=== PATIENT | female | born 1990 | race Caucasian/White ===

== ENCOUNTER 2019-11-19 17:32 | Emergency (ER) | payer MEDICAID, SELFPAY ==
[2019-11-19 17:47] VITALS: BP 99/65; PULSE 106; RESP 18; TEMP 36.8; O2SAT 98; BMI 22.8
--- NOTE | 2019-11-19 17:48 | XR_ITS ---
WS: [id number] EXAM: Chest: PA and lateral DATE OF EXAMINATION: 11/19/2019, 1809 hours COMPARISON: None. HISTORY: Patient is 29 years old with atraumatic chest pain. FINDINGS: The heart size is normal. The mediastinal contours are normal. Pulmonary vascularity is within norm al limits. The lungs are clear. No effusion, or pneumothorax. Bone density is normal in appearance. XR/XR chest 2V* [id number] IMPRESSION: NO ACUTE PULMONARY DISEASE.
--- NOTE | 2019-11-19 17:48 | ECG_ITS ---
[facility] Test Date: 2019-11-19 Pat Name: Juliann Braswell Department: Room: Gender: Female School Teacher: nelda : 1990 Requested By: Kaushal Huston Order Number: [id number] Debbie MD: Sarai Conklin M.D. Measurements Intervals [place] Rate: 98 P: 51 CO: 115 QRS: 71 QRSD: 89 T: 61 QT: 336 QTc: 430 Interpretive Statements SINUS RHYTHM WITH SHORT CO INTERVAL POSSIBLE RIGHT VENTRICULAR CONDUCTION DELAY [RSR (QR) IN V1/V2] No previous ECG available for comparison Electronically Signed On 11-19-2019 23:04:27 CDT by Sarai Conklin M.D. [email or web address]
--- NOTE | 2019-11-19 17:56 | PC.NURSE ---
UA collected and sent to lab
--- NOTE | 2019-11-19 19:10 | W.ED.CHESTPA ---
HPI - Chest Pain General: Chief Complaint: Chest Pain Stated Complaint: cp Time Seen by Provider: 11/19/19 18:54 Source: patient Mode of arrival: ambulatory Limitations: no limitations History of Present Illness: HPI narrative: Juliann is a very nice 29-year-old female who comes in complaining of chest pain. Scribes the pain is a deep ache in her chest but it feels like when she has bronchitis. The patient denies cough, fever, loss of sense of taste, loss of sense of smell or other URI symptoms. She states the pain is been constant since early this morning. She went to an urgent care and they referred her here informing her they thought she had a blood clot. Patient states she does have slight increase in pain when she takes a deep breath but otherwise has no syncope, near syncope, palpitations, leg pain or swelling. Associated symptoms: Deny abdominal pain, diaphoresis, dyspnea, fever(s), nausea, palpitations, syncope or vomiting Review of Systems Const: Denies: fever(s), chills, body aches, fatigue, malaise or diaphoresis Eyes: Denies: change in vision, blurry vision, photophobia, eye discomfort, eye discharge or eye redness ENMT: Denies: throat pain, odynophagia, hoarseness, swelling of lips/tongue, ear or mastoid pain, ear discharge, change in hearing or nasal discharge Card: Reports: chest pain; Denies: palpitations, irregular heart rhythm, edema, lightheadedness, syncope, pre-syncope, dyspnea on exertion or orthopnea Resp: Denies: dyspnea, productive cough, non-productive cough, wheezing, hemoptysis or chest congestion GI: Denies: abdominal pain, nausea, vomiting, hematemesis, coffee ground emesis, heartburn, diarrhea, constipation, GI cramping, hematochezia or melena : Denies: flank pain, dysuria, urinary frequency, urinary urgency or hematuria Musc: Denies: neck pain, back pain, extremity pain, extremity swelling, joint pain, joint swelling, joint redness, joint warmth or joint stiffness Skin/Breast: Denies: rash, pruritus, erythema or skin tenderness Neuro: Denies: headache(s), numbness in extremities, weakness in extremities, sensory changes, lack of coordination, difficulty walking, dizziness, vertigo, confusion, Slurred speech present or seizure-like activity Moshe/Lymph: Denies: easy bruising, easy bleeding, petechiae, purpura or enlarged lymph nodes All/Imm: Denies: urticaria, throat swelling, tongue swelling, facial swelling or acute wheezing PFSH ED PFSH: Medical History (Updated 11/19/19 @ 21:30 by Shi Smith) No pertinent past medical history Surgical History (Updated 11/19/19 @ 19:15 by Shi Smith) No pertinent past surgical history Social History (Updated 11/19/19 @ 15:[address] [facility]) Smoking and tobacco status: current every day smoker cigarettes Packs smoked per day: 0.5 Alcohol intake: never Physical Exam Const: COMMON NORMALS: no acute distress, patient oriented x3, no limitations, healthy appearing and well nourished GENERAL APPEARANCE: cooperative, well kempt and well developed HENMT: COMMON NORMALS: normocephalic, atraumatic, external ears normal, EAC's normal and Normal external nose present HEAD & SCALP: normal to inspection, normocephalic and atraumatic FACE & SINUS: normal facial exam and face symmetric NOSE: Normal external nose present and Normal nares present EXTERNAL EAR: Yes external ears normal EXTERNAL AUDITORY CANAL: EAC's normal MOUTH: Normal oral and palatal mucosa present, lip normal and tongue normal Eye: COMMON NORMALS: Equal, round and reactive pupils present and conjunctivae normal GENERAL EYE: appearance normal, both eyes and all related structures ALIGNMENT: Yes alignment normal PERIORBITAL: periorbital findings normal EYELID: eyelids normal CONJUNCTIVA: Yes conjunctivae normal SCLERA: sclerae normal PUPIL: Yes Equal, round and reactive pupils present Neck/C-Spine: COMMON NORMALS: full ROM, no lymphadenopathy, supple, no meningeal signs and no JVD GENERAL: Yes normal visual inspection and Yes trachea midline Chest: COMMONS NORMALS: normal inspection of the chest and normal palpation of entire chest wall Resp: COMMON NORMALS: normal respiratory effort, No retractions, No use of accessory muscles and clear to auscultation bilaterally EFFORT & INSPECTION: Yes able to speak in complete sentences and Yes symmetric chest movement AUSCULTATION: clear to auscultation bilaterally, no crackles, no rales, no rhonchi and no wheezes Cardio: COMMON NORMALS: no JVD, regular rate, regular rhythm, S1 normal heart sound present and S2 normal heart sound present RATE: regular rate RHYTHM: regular rhythm HEART SOUNDS: S1 normal heart sound present, S2 normal heart sound present, no click, no gallops, no murmurs, no rubs and abnormal split S2 GI: COMMON NORMALS: Soft to palpation and No hepatosplenomegaly present INSPECTION: Yes gravid abdomen PALPATION: Yes Soft to palpation, No Tenderness to palpation present (GI), No Guarding due to palpation present (GI), No Rigid due to palpation, Yes No hepatosplenomegaly present, No Hernia present and No Pulsatile mass present : COMMON NORMALS: Yes no CVA tenderness BLADDER/KIDNEY EXAM: Yes no CVA tenderness EXTERNAL FEMALE EXAM: No Hernia present Back/Pelvis: COMMON NORMALS: no CVA tenderness, thoracic and lumbar spine normal to inspection, no thoracic nor lumbar tenderness and thoraco-lumbar ROM normal Extremity: COMMON NORMALS: normal to inspection, full ROM, capillary refill normal, no joint enlargement, no clubbing, cyanosis or edema and no calf tenderness Neuro: COMMON NORMALS: patient oriented x3, CN's II-XII intact bilaterally, moves all extremities, no focal motor deficits and no sensory deficits noted MENINGEAL SIGNS: Yes no meningeal signs SPEECH: speech normal Psych: COMMON NORMALS: mental status grossly normal, Normal thought process present, cooperative, normal affect, speech normal and activity/motor behavior normal APPEARANCE: Yes well kempt SPEECH: Yes normal speech THOUGHT PROCESS: Normal thought process present Skin: COMMON NORMALS: no rashes or lesions noted, turgor normal, no jaundice, no petechiae and no mottling GENERAL SKIN EXAM: no rashes or lesions noted and turgor normal Course Vital Signs: Vital signs: Vital Signs Temperature 97.7 F 11/19/19 19:14 Pulse Rate 74 11/19/19 21:03 Respiratory Rate 16 11/19/19 21:03 Blood Pressure 111/65 11/19/19 21:03 Pulse Oximetry 99 11/19/19 21:03 MDM - Chest Pain MDM Narrative: Medical decision making narrative: Juliann is a nice 29-year-old female comes in complaining of chest pain. Pain is been constant all day. She has a unremarkable EKG and a normal troponin. Chest pain for this long per the hospital pathway rules out cardiac causes for his symptoms. Patient's d-dimer was unfortunately high but a CTA is negative including the pulmonary section. There is no sign of infection either. Ultrasound of lower extremities is normal. heart rate is normal by bedside ultrasound. I will go ahead and discharge the patient home and she agrees to follow-up with her regular doctor if her symptoms persist. Lab Data: Attestation: I reviewed the patient's lab results. Labs: Lab Results 11/19/19 11/19/19 11/19/19 Range/Units 17:52 19:09 19:09 WBC 10.8 H (4.0-10.0) 10^3/ uL RBC 3.27 L (4.1-5.3) 10^6/u L Hgb 11.1 L (11.5-15.3) g/dL Hct 33.1 L (37.0-47.0) % MCV 101.2 H (81-99) fL MCH 33.9 (28.0-34.0) pg MCHC 33.5 (30.0-36.0) g/dL RDW 13.1 (12.1-15.1) % Plt Count 286 (130-400) 10^3/c mm MPV 10.1 (7.4-10.4) fL Neut % (Auto) 58.7 % Lymph % (Auto) 35.7 % [place] % (Auto) 4.3 % Eos % (Auto) 0.7 % Baso % (Auto) 0.3 % Neut # (Auto) 6.36 (1.8-7.7) 10^3/u L Lymph # (Auto) 3.9 (0.8-4.8) 10^3/u L [place] # (Auto) 0.5 (0.2-0.9) 10^3/u L Eos # (Auto) 0.1 (0.0-0.8) 10^3/u L Baso # (Auto) 0.0 (0.0-0.1) 10^3/u L Nucleated RBC % (a uto) 0 % Nucleated RBCs # 0.0 /100WBC D-Dimer 0.84 H (0-0.59) ug/mIFE U Sodium (136-145) mmol/L Potassium (3.5-5.1) mmol/L Chloride (98-107) mmol/L Carbon Dioxide (22-29) mmol/L Anion Gap (5-19) BUN (6-20) mg/dL Creatinine (0.5-0.9) mg/dL GFR Calculation (90-130) mL/min Glucose (65-115) mg/dL Calculated Osmolal ity (285-295) mOsm/k g Calcium (8.5-10.5) mg/dL Total Bilirubin (0.15-1.2) mg/dL AST (0-32) U/L ALT (0-33) U/L Alkaline Phosphata se (35-105) IU/L Troponin T Gen 5 n g/L (0-10) ng/L Total Protein (6.6-8.7) g/dL Albumin (3.5-5.2) g/dL Globulin (1.3-4.6) g/dL Amorphous Sediment Not Reportable 11/19/19 11/19/19 Range/Units 19:09 19:09 WBC (4.0-10.0) 10^3/ uL RBC (4.1-5.3) 10^6/u L Hgb (11.5-15.3) g/dL Hct (37.0-47.0) % MCV (81-99) fL MCH (28.0-34.0) pg MCHC (30.0-36.0) g/dL RDW (12.1-15.1) % Plt Count (130-400) 10^3/c mm MPV (7.4-10.4) fL Neut % (Auto) % Lymph % (Auto) % [place] % (Auto) % Eos % (Auto) % Baso % (Auto) % Neut # (Auto) (1.8-7.7) 10^3/u L Lymph # (Auto) (0.8-4.8) 10^3/u L [place] # (Auto) (0.2-0.9) 10^3/u L Eos # (Auto) (0.0-0.8) 10^3/u L Baso # (Auto) (0.0-0.1) 10^3/u L Nucleated RBC % (a uto) % Nucleated RBCs # /100WBC D-Dimer (0-0.59) ug/mIFE U Sodium 136 (136-145) mmol/L Potassium 3.5 (3.5-5.1) mmol/L Chloride 105 (98-107) mmol/L Carbon Dioxide 23 (22-29) mmol/L Anion Gap 11.5 (5-19) BUN 8 (6-20) mg/dL Creatinine 0.5 (0.5-0.9) mg/dL GFR Calculation 148.0 H (90-130) mL/min Glucose 105 (65-115) mg/dL Calculated Osmolal ity 278 L (285-295) mOsm/k g Calcium 9.1 (8.5-10.5) mg/dL Total Bilirubin 0.2 (0.15-1.2) mg/dL AST 12 (0-32) U/L ALT 10 (0-33) U/L Alkaline Phosphata se 44 (35-105) IU/L Troponin T Gen 5 n g/L 6 (0-10) ng/L Total Protein 6.4 L (6.6-8.7) g/dL Albumin 3.7 (3.5-5.2) g/dL Globulin 2.7 (1.3-4.6) g/dL Amorphous Sediment Imaging Data^: US venous Doppler bilateral: My impression: Tech interpretation -no evidence of DVT CXR: Attestation: I personally reviewed and interpreted this imaging study as follows: My impression: No acute cardiopulmonary findings CT Chest: Radiologist's impression: [address] [address] [address] Scan Report Signed Patient: Juliann Braswell Unit #: [id number] : 1990 Age/Sex: 29 / F ADM Date: 11/19/19 Loc: ER Room/Bed: Attending Dr: Ordering Provider/Ordering MD: Shi Smith DO Date of Service: 11/19/19 Procedure(s): CT angio chest PE protcl 10001 Accession Number(s): [id number] Report Number: [id number] PROCEDURE INFORMATION: Exam: CT Angiography Chest With Contrast Exam date and time: 11/19/2019 8:29 PM Age: 29 years old Clinical indication: Chest pain; Additional info: Chest pain, positive d-dimer TECHNIQUE: Imaging protocol: Computed tomographic angiography of the chest with intravenous contrast. 3D rendering (Not supervised by radiologist): MIP and/or 3D reconstructed images were created by the technologist. Radiation optimization: All CT scans at this facility use at least one of these dose optimization techniques: automated exposure control; mA and/or kV adjustment per patient size (includes targeted exams where dose is matched to clinical indication); or iterative reconstruction. Contrast material: VISI 320; Contrast volume: 67 ml; Contrast route: INTRAVENOUS (IV); COMPARISON: CR XR chest 2V* 13000 11/19/2019 6:03 PM RADIATION DOSE METRICS: Total DLP (mGy-cm): 588.13 FINDINGS: Pulmonary arteries: Normal. No pulmonary emboli. Aorta: Unremarkable. No aortic aneurysm. No aortic dissection. Lungs: Unremarkable. No consolidation. No masses. Pleural space: Unremarkable. No pneumothorax. No pleural effusion. Heart: Unremarkable. No cardiomegaly. No pericardial effusion. Lymph nodes: Unremarkable. No enlarged lymph nodes. Bones/joints: Unremarkable. No acute fracture. Soft tissues: Unremarkable. CT/CT angio chest PE protcl [id number] IMPRESSION: Negative for pulmonary embolus or airspace infiltrate. Radiation Dose CTDIVOL = (mGy): DLP = 588.13 (mGy-cm) Dictated By: Andres Rose MD Signed By: Andres Rose MD Signed Date/Time: 11/19/192114 DD/ 13 Discharge Plan Discharge Patient Disposition: Home Clinical Impression: Chest pain Qualifiers: Chest pain type: unspecified Qualified Code(s): R07.9 - Chest pain, unspecified Condition: Stable Prescriptions: No Action prenat.vits,jeanine,evu-xtao-weoqs Tablet 1 tab PO DAILY RF: 0 omeprazole 20 mg capsule,delayed release(DR/EC) 20 mg PO DAILY RF: 0 Discharge Orders: Discharge Order (Routine); Ordered 11/19/19 Ordered By: Shi Smith Referrals: Rigo Reddy MD [Primary Care Provider] - 1-3 days Discharge Diet: Advance as tolerated Discharge Activity: Increase activity as tolerated Patient Instructions: Chest Pain (ED), Costochondritis (ED) Activity Restrictions/Additional Instructions: Please return to the ER immediately for any of the signs or symptoms listed on your discharge instruction sheets, worsening/changing of your symptoms, you are not getting better as quickly as expected, or for ANY other cause or concerns. Coding Level of Care Code ED [employer] Exam Comprehensive
[2019-11-19 19:14] VITALS: BP 109/68; PULSE 82; RESP 18; TEMP 36.5; O2SAT 98
[2019-11-19 19:17] LABS: Basophils % 0.3 %; Eosinophils # 0.1 10^3/uL (0.0-0.8); Eosinophils % 0.7 %; Hematocrit 33.1 % (37.0-47.0); Hemoglobin 11.1 g/dL (11.5-15.3); Lymphocytes # 3.9 10^3/uL (0.8-4.8); Lymphocytes % 35.7 %; Mean Corpuscular HGB Conc 33.5 g/dL (30.0-36.0); Mean Corpuscular Hemoglobin 33.9 pg (28.0-34.0); Mean Corpuscular Volume 101.2 fL (81-99); Mean Platelet Volume 10.1 fL (7.4-10.4); Monocytes # 0.5 10^3/uL (0.2-0.9); Monocytes % 4.3 %; Neutrophils # 6.36 10^3/uL (1.8-7.7); Neutrophils % 58.7 %; Nucleated Red Blood Cells % 0 %; Platelet Count 286 10^3/cmm (130-400); Red Blood Count 3.27 10^6/uL (4.1-5.3); Red Cell Distribution Width 13.1 % (12.1-15.1); White Blood Count 10.8 10^3/uL (4.0-10.0)
[2019-11-19 19:32] LABS: D Dimer 0.84 ug/mIFEU (0-0.59)
[2019-11-19 19:37] LABS: Alanine Aminotransferase 10 U/L (0-33); Albumin Level 3.7 g/dL (3.5-5.2); Alkaline Phosphatase 44 IU/L (35-105); Anion Gap 11.5 (5-19); Aspartate Amino Transferase 12 U/L (0-32); Blood Urea Nitrogen 8 mg/dL (6-20); Calcium 9.1 mg/dL (8.5-10.5); Carbon Dioxide 23 mmol/L (22-29); Chloride 105 mmol/L (98-107); Globulin 2.7 g/dL (1.3-4.6); Glucose 105 mg/dL (65-115); Osmolality Calculated 278 mOsm/kg (285-295); Potassium 3.5 mmol/L (3.5-5.1); Sodium 136 mmol/L (136-145); Total Bilirubin 0.2 mg/dL (0.15-1.2); Total Protein 6.4 g/dL (6.6-8.7); Troponin T (5th) Once 6 ng/L (0-10)
--- NOTE | 2019-11-19 19:53 | USCV_ITS ---
Juliann Braswell Age: 29 Gender: F : 1990 Exam Date: 11/19/2019 20:26 Ordering Phys: Shi Smith DO Technologist: Liborio Vann Exam Location: [facility] [place] Indication: ? PE HISTORY: CHEST PAIN PROCEDURES: The venous duplex Doppler examination of both lower extremities was performed in the standard fashion. The following venous structures were evaluated: common femoral vein, profunda vein, proximal portion of the greater saphenous vein, superficial femoral vein, and the popliteal vein. Bilaterally, the common femoral, superficial femoral, profunda femoral, popliteal, posterior tibial, greater saphenous veins, and the peroneal trunk were identified and interrogated in the standard fashion. These veins were found to be easily compressible with spontaneous blood flow. No evidence of insufficiency or thrombus noted. FINDINGS: Normal 2-D Doppler and augmentation and compressibility throughout the lower extremity venous structures. Additional imaging through the proximal calf veins also reveals no thrombus. Limited evaluation of the greater saphenous vein is patent with no thrombus.. CONCLUSIONS No evidence of DVT in the above-mentioned identifiable veins. Dr Sarai Conklin MD [facility] (Electronically Signed) Final Date: 20 November 2019 17:24 S
--- NOTE | 2019-11-19 19:54 | CTR_ITS ---
PROCEDURE INFORMATION: Exam: CT Angiography Chest With Contrast Exam date and time: 11/19/2019 8:29 PM Age: 29 years old Clinical indication: Chest pain; Additional info: Chest pain, positive d-dimer TECHNIQUE: Imaging protocol: Computed tomographic angiography of the chest with intravenous contrast. 3D rendering (Not supervised by radiologist): MIP and/or 3D reconstructed images were created by the technologist. Radiation optimization: All CT scans at this facility use at least one of these dose optimization techniques: automated exposure control; mA and/or kV adjustment per patient size (includes targeted exams where dose is matched to clinical indication); or iterative reconstruction. Contrast material: VISI 320; Contrast volume: 67 ml; Contrast route: INTRAVENOUS (IV); COMPARISON: CR XR chest 2V* [id number] 11/19/2019 6:03 PM RADIATION DOSE METRICS: Total DLP (mGy-cm): 588.13 FINDINGS: Pulmonary arteries: Normal. No pulmonary emboli. Aorta: Unremarkable. No aortic aneurysm. No aortic dissection. Lungs: Unremarkable. No consolidation. No masses. Pleural space: Unremarkable. No pneumothorax. No pleural effusion. Heart: Unremarkable. No cardiomegaly. No pericardial effusion. Lymph nodes: Unremarkable. No enlarged lymph nodes. Bones/joints: Unremarkable. No acute fracture. Soft tissues: Unremarkable. CT/CT angio chest PE protcl [id number] IMPRESSION: Negative for pulmonary embolus or airspace infiltrate. Radiation Dose CTDIVOL = (mGy): DLP = 588.13 (mGy-cm)
[2019-11-19] MEDS: iodixanol 320 mg/mL 100mL Btl IV (20:53)
[2019-11-19] MEDS: acetaminophen 500 mg Tablet 1000 MG PO (20:57)
[2019-11-19] MEDS: sodium chloride 0.9% 1,000 ML 100 ML IV (20:59)
[2019-11-19 21:03] VITALS: BP 111/65; PULSE 74; RESP 16; O2SAT 99
[2019-11-19 21:52] LABS: Bacteria Urine 1+; Bilirubin Urine Neg (NEGATIVE); Blood Urine Neg (Negative); Glucose Urine UA Norm (Normal); Ketones Urine 2+ (Negative); Leukocyte Esterase Urine Negative (Negative); Nitrate Urine Negative (Negative); Protein Urine Neg (Negative); RBC Urine 0-4 /hpf (0-2); Urine Appearance Clear (CLEAR); Urine Color Yellow (Yellow); Urobilinogen Urine Norm (Negative); pH Urine 6 (5-7)
== END 2019-11-19 21:51 | disposition home or self-care (01) ==
PROVIDERS: Emergency Provider Emergency Medicine; PCP Family Medicine
DX: R07.9 Chest pain, unspecified (principal); F17.210 Nicotine dependence, cigarettes, uncomplicated
CPT/HCPCS: 12345; 71046; 71275; 80053; 81001; 84484; 85025; 85378; 93005; 93970; 96360; 96361; 99283; 99284; J7030; Q9967

== ENCOUNTER 2023-01-14 05:44 | Emergency (ER) | payer MEDICAID, SELFPAY ==
[2023-01-14 05:57] VITALS: BP 111/68; PULSE 78; RESP 16; TEMP 36.5; O2SAT 99; BMI 20.9
[2023-01-14 06:02] VITALS: BP 106/64; RESP 16; O2SAT 97
[2023-01-14 06:13] LABS: Basophils % 0.4 %; Eosinophils # 0.1 10^3/uL (0.0-0.8); Eosinophils % 1.2 %; Hematocrit 39.9 % (36-47); Lymphocytes # 3.2 10^3/uL (0.8-4.8); Mean Corpuscular HGB Conc 33.6 g/dL (30-55); Mean Corpuscular Hemoglobin 33.5 pg (27-33); Mean Corpuscular Volume 99.8 fl (85-98); Mean Platelet Volume 9.7 fL (7.4-10.4); Monocytes # 0.4 10^3/uL (0.2-0.9); Monocytes % 5.2 %; Neutrophils # 4.23 10^3/uL (1.8-7.7); Neutrophils % 52.8 %; Nucleated Red Blood Cells % 0 %; Platelet Count 282 10^3/cmm (157-399); Red Cell Distribution Width 12.8 % (12.1-15.1); White Blood Count 8.01 10^3/uL (3.29-11.43)
--- NOTE | 2023-01-14 06:14 | W.ED.PREGNAN ---
HPI - General: Chief complaint: OB/Uterine Contractions Stated complaint: 7 Weeks Preg\Bleeding Time Seen by Provider: 01/14/23 06:13 History of Present Illness: 32-year-old female presents emergency department with complaints of intermittent vaginal spotting that started this morning. She states she has a previously confirmed at a [facility] as well as a home test and had an ultrasound to confirm intrauterine .. She states she is approximately 7 weeks gestation. She is currently G1, P2 with a stillborn previously. She denies noted clots or tissue. She denies lower abdominal cramping. She states nothing seems to make it better nothing seems to make it worse. She denies vaginal discharge or foul smell. Date of Last Menstrual Period: 11/20/22 Associated symptoms: Deny nausea or vomiting Review of Systems General: Reports: 10 or more systems reviewed and unremarkable except in HPI and below GI: Denies: nausea or vomiting : Reports: vaginal bleeding; Denies: urinary frequency, urinary urgency or urinary hesitancy [facility] ED PFSH: Medical History (Updated 01/22/23 @ 00:01 by BABAR Arenas) No pertinent past medical history Surgical History (Updated 11/19/19 @ 19:15 by Shi Smith) No pertinent past surgical history Social History (Updated 11/19/19 @ 15:19 by Pat Blackman [facility]) Smoking and tobacco/nicotine status: current every day tobacco/nicotine user cigarettes Packs smoked per day: 0.5 Alcohol intake: never Substance/Drug Use: never Female Reproductive History: Date of last menstrual period: 11/20/22 Physical Exam Const: COMMON NORMALS: no acute distress, average body habitus, patient oriented x3 and alert HENMT: COMMON NORMALS: normocephalic, atraumatic and moist oral mucous membranes HEAD & SCALP: normocephalic and atraumatic Eye: COMMON NORMALS: Equal, round and reactive pupils present and EOMs intact bilaterally PUPIL: Yes Equal, round and reactive pupils present Neck/C-Spine: COMMON NORMALS: full ROM, no lymphadenopathy, supple, no meningeal signs and no JVD Chest: COMMONS NORMALS: normal inspection of the chest and normal palpation of entire chest wall Resp: COMMON NORMALS: normal respiratory effort, No use of accessory muscles and clear to auscultation bilaterally AUSCULTATION: clear to auscultation bilaterally Cardio: COMMON NORMALS: no JVD, regular rate, regular rhythm, S1 normal heart sound present and S2 normal heart sound present RATE: regular rate RHYTHM: regular rhythm HEART SOUNDS: S1 normal heart sound present and S2 normal heart sound present GI: COMMON NORMALS: Normal to inspection, nondistended, normoactive bowel sounds present, Soft to palpation and non-tender PALPATION: Yes Soft to palpation : COMMON NORMALS: Yes no CVA tenderness BLADDER/KIDNEY EXAM: Yes no CVA tenderness OTHER: Deferred to [employer] specialist at the request of the patient Back/Pelvis: COMMON NORMALS: no CVA tenderness, thoracic and lumbar spine normal to inspection, no thoracic nor lumbar tenderness and thoraco-lumbar ROM normal Extremity: COMMON NORMALS: normal to inspection, full ROM and capillary refill normal Neuro: COMMON NORMALS: patient oriented x3, moves all extremities, no focal motor deficits and gait normal SENSORIUM/ORIENTATION: Yes alert MENINGEAL SIGNS: Yes no meningeal signs Psych: COMMON NORMALS: mental status grossly normal, Normal thought process present, cooperative and normal affect THOUGHT PROCESS: Normal thought process present Skin: COMMON NORMALS: no rashes or lesions noted and no wounds GENERAL SKIN EXAM: no rashes or lesions noted Course Vital Signs: Vital signs: Vital Signs Temperature 97.7 F 01/14/23 05:57 Pulse Rate 87 01/14/23 08:20 Respiratory Rate 16 01/14/23 08:20 Blood Pressure 106/64 01/14/23 08:20 Pulse Oximetry 97 01/14/23 08:20 Oxygen Delivery Me thod Room Air 01/14/23 06:02 MDM - OB/Uterine Contractions Medical Decision Making Physical exam completed and documented, I did order type and screen to check her Rh status she is Rh+ she has had 1 previous that resulted in a stillborn. Her urine drug screen is positive for marijuana the remainder of her laboratory evaluation appears to be within normal limits. We did obtain a CBC and a CMP as well as a urinalysis and urine beta-hCG quantitative which appears within the range of the expected gestational presentation. Patient states and demonstrates on her phone a picture from a recent ultrasound that demonstrated intrauterine so we will not obtain a repeat ultrasound at this time. I have discussed the importance of recommended follow-up with the [employer]. At the patient's request we did defer the speculum exam as she will call to make an appointment for follow-up within the next 2 to 3 days with her [employer]. I did discuss additional precautions as well as no sexual activity and pelvic and vaginal rest. I did advise her there is a potential for this to be a threatened miscarriage versus implantation. Patient verbalized understanding all information provided was discharged home stable condition with the precautions and understandings that she may return to the emergency department at any time for any reason or if her symptoms worsen to return. Medical Records I reviewed the patient's medical records. Lab Data I reviewed the patient's lab results. 01/14/23 06:01 Laboratory Results WBC 8.01 10^3/uL (3.29-11.43) 01/14/23 06:01 RBC 4.00 10^6/uL (3.85-5.65) 01/14/23 06:01 Hgb 13.40 g/dL (11.27-16.99) 01/14/23 06:01 Hct 39.9 % (36-47) 01/14/23 06:01 MCV 99.8 fl (85-98) H 01/14/23 06:01 MCH 33.5 pg (27-33) H 01/14/23 06:01 MCHC 33.6 g/dL (30-55) 01/14/23 06:01 RDW 12.8 % (12.1-15.1) 01/14/23 06:01 Plt Count 282 10^3/cmm (157-399) 01/14/23 06:01 MPV 9.7 fL (7.4-10.4) 01/14/23 06:01 Neut % (Auto) 52.8 % 01/14/23 06:01 Lymph % (Auto) 40.0 % 01/14/23 06:01 [place] % (Auto) 5.2 % 01/14/23 06:01 Eos % (Auto) 1.2 % 01/14/23 06:01 Baso % (Auto) 0.4 % 01/14/23 06:01 Neut # (Auto) 4.23 10^3/uL (1.8-7.7) 01/14/23 06:01 Lymph # (Auto) 3.2 10^3/uL (0.8-4.8) 01/14/23 06:01 [place] # (Auto) 0.4 10^3/uL (0.2-0.9) 01/14/23 06:01 Eos # (Auto) 0.1 10^3/uL (0.0-0.8) 01/14/23 06:01 Baso # (Auto) 0.0 10^3/uL (0.0-0.1) 01/14/23 06:01 Nucleated RBC % (auto) 0 % 01/14/23 06:01 Nucleated RBCs # 0.0 /100WBC 01/14/23 06:01 Ser , Semi-Qnt 4346.00 mIU/mL 01/14/23 06:01 Urine Color Light yellow (Yellow) 01/14/23 06:01 Urine Appearance Clear (CLEAR) 01/14/23 06:01 Urine pH 6.5 (5-7) 01/14/23 06:01 Ur Specific [place] 1.005 (1.005-1.030) 01/14/23 06:01 Urine Protein Neg (Negative) 01/14/23 06:01 Urine Glucose (UA) Norm (Normal) 01/14/23 06:01 Urine Ketones Negative (Negative) 01/14/23 06:01 Urine Blood 3+ (Negative) H 01/14/23 06:01 Urine Nitrate Negative (Negative) 01/14/23 06:01 Urine Bilirubin Neg (Negative) 01/14/23 06:01 Urine Urobilinogen Norm mg/dL (Negative) 01/14/23 06:01 Ur Leukocyte Esterase Negative (Negative) 01/14/23 06:01 Urine RBC 5-10 /hpf (0-2) H 01/14/23 06:01 Urine WBC 0-4 /hpf (0-5) H 01/14/23 06:01 Ur Squamous Epith Cells 0-4 /hpf (0-5) H 01/14/23 06:01 Amorphous Sediment Not Reportable 01/14/23 06:01 Urine Bacteria Trace /hpf (NONE) 01/14/23 06:01 Urine Opiates Screen Negative ng/mL (Negative) 01/14/23 06:01 Ur Barbiturates Screen Negative ng/mL (Negative) 01/14/23 06:01 Ur Phencyclidine Scrn Negative ng/mL (Negative) 01/14/23 06:01 Ur Amphetamines Screen Negative ng/mL (Negative) 01/14/23 06:01 U Benzodiazepines Scrn Negative ng/mL (Negative) 01/14/23 06:01 Urine Cocaine Screen Negative ng/mL (Negative) 01/14/23 06:01 U Marijuana (THC) Screen Positive ng/mL (Negative) H 01/14/23 06:01 Blood Type A Positive 01/14/23 06:01 Rho(D) Type Positive 01/14/23 06:01 Antibody Screen Negative 01/14/23 06:01 No radiology studies performed this visit Discharge Plan Discharge Patient Disposition: Home Clinical Impression: Miscarriage, threatened, early , Bleeding in early Condition: Stable Prescriptions: No Action prenat.vits,jeanine,[id number] Tablet 1 tab PO DAILY omeprazole 20 mg capsule,delayed release(DR/EC) 20 mg PO DAILY Discharge Orders: Discharge ED (Routine); Ordered 01/14/23 Ordered By: Alex Culver Discharge Diet: Advance as tolerated Discharge Activity: Resume usual activity Patient Instructions: Pelvic Rest (ED) Coding Level of Care Code ED Product Promoter [employer] for Lester Goodman
[2023-01-14 06:48] LABS: Add Urine Microscopic? YES; Bilirubin Urine Neg (Negative); Blood Urine 3+ (Negative); Glucose Urine UA Norm (Normal); Ketones Urine Negative (Negative); Leukocyte Esterase Urine Negative (Negative); Nitrate Urine Negative (Negative); Protein Urine Neg (Negative); Specific Gravity, Urine 1.005 (1.005-1.030); Urine Appearance Clear (CLEAR); Urine Color Light yellow (Yellow); Urobilinogen Urine Norm (Negative); pH Urine 6.5 (5-7)
[2023-01-14 06:49] LABS: Add Urine Culture? No; Bacteria Urine TRACE /hpf; Squamous Epithelial Cell Urine 0-4 /hpf (0-5); WBC Urine 0-4 /hpf (0-5)
[2023-01-14 06:53] LABS: Amphetamines Screen Urine Negative (Negative); Barbiturates Screen Urine Negative (Negative); Benzodiazepines Screen Urine Negative (Negative); Cocaine Screen Urine Negative (Negative); Opiate Screen Urine Negative (Negative); PCP Screen Urine Negative (Negative); THC Screen Urine Positive (Negative)
[2023-01-14 08:20] VITALS: BP 106/64; PULSE 87; RESP 16; O2SAT 97
== END 2023-01-14 08:23 | disposition home or self-care (01) ==
PROVIDERS: Emergency Medicine; Emergency Provider Internal Medicine
DX: O20.0 Threatened abortion (principal); O26.851 Spotting complicating pregnancy, first trimester; O99.331 Smoking (tobacco) complicating pregnancy, first trimester; F17.210 Nicotine dependence, cigarettes, uncomplicated; Z3A.01 Less than 8 weeks gestation of pregnancy
CPT/HCPCS: 80306; 81001; 84702; 85025; 86850; 86900; 99283

== ENCOUNTER → 2023-05-10 09:43 | Outpatient (BNVA) | payer OTHER, MEDICAID, SELFPAY | PROVIDERS: Visit Provider Emergency Medicine | DX: M17.11 Unilateral primary osteoarthritis, right knee (principal); M25.561 Pain in right knee | CPT/HCPCS: 73562 ==

== ENCOUNTER 2023-08-27 06:00 | Outpatient (RCR) | payer OTHER, MEDICAID, SELFPAY | END 2023-08-30 23:59 | disposition home or self-care (01) | LOC: MPT 06:00 | PROVIDERS: Visit Provider Orthopaedic Surgery | DX: Z98.890 Other specified postprocedural states (principal) | CPT/HCPCS: 97110; 97140; 97162 ==

== ENCOUNTER 2023-08-31 06:00 | Outpatient (RCR) | payer OTHER, MEDICAID, SELFPAY | END 2023-09-29 23:59 | disposition home or self-care (01) | LOC: MPT 06:00 | PROVIDERS: Visit Provider Orthopaedic Surgery | DX: Z98.890 Other specified postprocedural states (principal) | CPT/HCPCS: 97110; 97112; 97140; 97530 ==

== ENCOUNTER 2023-09-30 06:00 | Outpatient (RCR) | payer OTHER, MEDICAID, SELFPAY | END 2023-10-30 23:59 | disposition home or self-care (01) | LOC: MPT 06:00 | PROVIDERS: PCP Nurse Practitioner; Visit Provider Orthopaedic Surgery | DX: Z98.890 Other specified postprocedural states (principal) | CPT/HCPCS: 97110; 97112; 97116 ==

== ENCOUNTER → 2023-10-07 10:16 | Outpatient (BNVA) | payer OTHER, MEDICAID, SELFPAY | PROVIDERS: PCP Nurse Practitioner; Referring Provider Nurse Practitioner; Visit Provider Nurse Practitioner | DX: F41.9 Anxiety disorder, unspecified (principal); F32.A Depression, unspecified; Z79.899 Other long term (current) drug therapy | CPT/HCPCS: 80053; 84443 ==

== ENCOUNTER 2023-10-31 06:00 | Outpatient (RCR) | payer OTHER, MEDICAID, SELFPAY | END 2023-11-30 23:59 | disposition home or self-care (01) | LOC: MPT 06:00 | PROVIDERS: PCP Nurse Practitioner; Visit Provider Orthopaedic Surgery | DX: Z98.890 Other specified postprocedural states (principal) | CPT/HCPCS: 97110; 97112; 97140 ==

== ENCOUNTER 2023-12-01 06:37 | Outpatient (RCR) | payer OTHER, MEDICAID, SELFPAY | END 2023-12-30 23:59 | disposition home or self-care (01) | LOC: MPT 06:37 | PROVIDERS: PCP Nurse Practitioner; Visit Provider Orthopaedic Surgery | DX: Z98.890 Other specified postprocedural states (principal) | CPT/HCPCS: 97110 ==

== ENCOUNTER 2024-09-13 15:36 | Emergency (ER) | payer MEDICAID, SELFPAY ==
[2024-09-13 15:42] VITALS: BP 113/75; PULSE 92; RESP 14; TEMP 36.7; O2SAT 100; BMI 23.3
--- NOTE | 2024-09-13 15:42 | XRR_ITS ---
PROCEDURE INFORMATION: Exam: XR Right Knee Exam date and time: 09/13/2024 4:02 PM Age: 34 years old Clinical indication: Right; Prior surgery; Surgery date: 6+ months; Surgery type: RT acl/mcl; RT knee pain after fall x 1 day ago; Acl/mcl repair x 1yr ago; PT states RT lef has been weak and sometimes gives out on her resulting in a fall this time. ; Additional info: Injury TECHNIQUE: Imaging protocol: Radiologic exam of the right knee. Views: 3 views. COMPARISON: CR XR knee RT 3V* [id number] 05/10/2023 9:55 AM FINDINGS: Bones/joints: Prior ACL repair. Joint effusion. No acute fracture. Soft tissues: Normal. XR/XR knee RT 3V* [id number] IMPRESSION: 1. Prior ACL repair. 2. Joint effusion. 3. No acute fracture.
--- NOTE | 2024-09-13 16:01 | W.ED.EXTPRO ---
HPI - Extremity Problem General: Chief complaint: Extremity Injury, Lower Stated complaint: rt knee inj (1yr postop) Time Seen by Provider: 09/13/24 15:56 Source: patient Mode of arrival: ambulatory Limitations: no limitations History of Present Illness: 34-year-old female states she has been had her right knee repaired little over a year ago she had a ACL and LCL replaced. [place] and felt like she had injured that knee states that since then she has not been able to fully range of motion but and is felt like it has been getting out and has not been able to ambulate well with it. Rates her pain a 6 out of 10 currently denies any other injuries Associated symptoms: Deny chest pain, fever(s) or rash Related Data Home Medications ?Medication ?Instructions ?Recorded ?Confirmed acetaminophen 325 mg capsule 325 mg PO QID PRN 10/02/23 10/02/23 (Tylenol) aspirin 81 mg tablet,delayed 81 mg PO BID 10/02/23 10/02/23 release (Adult Aspirin Regimen) gabapentin 300 mg capsule 300 mg PO TID 10/02/23 10/02/23 Previous Rx's ?Medication ?Instructions ?Recorded crutch #2 ea 05/10/23 knee immobilizer #1 ea 05/10/23 hydroxyzine HCl 10 mg tablet 10 mg PO BID PRN anxiety #60 tabs 10/02/23 Allergies Allergy/AdvReac Type Severity Reaction Status Date / Time hydrocodone Allergy ADR-Vomitin Verified 09/13/24 15:55 g Review of Systems Const: Denies: fever(s), chills, body aches or change in appetite ENMT: Denies: throat pain or dental pain Card: Denies: chest pain Resp: Denies: dyspnea GI: Denies: abdominal pain, nausea, vomiting or diarrhea Musc: Reports: extremity pain; Denies: neck pain or back pain Skin/Breast: Denies: rash Neuro: Denies: headache(s) PFSH ED PFSH: Medical History Psychiatric care No pertinent past medical history Surgical History No pertinent past surgical history Family History Family/Other Cancer maternal aunt and uncle as well as both grandparents had malinoma Grandfather also had a brain tumor. Denies family history of Diabetes Heart disease Chronic kidney disease (CKD) Thyroid disease Stroke Social History Smoking and tobacco/nicotine status: former use of tobacco/nicotine Alcohol intake: never Substance/Drug Use: never Female Reproductive History: Para: 1 Spontaneous abortions: Yes Physical Exam Const: COMMON NORMALS: no acute distress, patient oriented x3 and healthy appearing HENMT: COMMON NORMALS: normocephalic and atraumatic HEAD & SCALP: normocephalic and atraumatic Eye: COMMON NORMALS: conjunctivae normal CONJUNCTIVA: Yes conjunctivae normal Neck/C-Spine: COMMON NORMALS: full ROM and supple Chest: COMMONS NORMALS: normal inspection of the chest Resp: COMMON NORMALS: normal respiratory effort Cardio: COMMON NORMALS: regular rate RATE: regular rate Extremity: NARRATIVE EXTREMITY EXAM: Tenderness noted to right knee slight swelling no obvious deformities distal pulses intact Neuro: COMMON NORMALS: patient oriented x3, moves all extremities and no focal motor deficits Psych: COMMON NORMALS: mental status grossly normal, Normal thought process present and cooperative THOUGHT PROCESS: Normal thought process present Skin: COMMON NORMALS: no rashes or lesions noted and no wounds GENERAL SKIN EXAM: no rashes or lesions noted Course Vital Signs: Vital signs: Vital Signs Temperature 98.0 F 09/13/24 15:42 Pulse Rate 92 09/13/24 15:42 Respiratory Rate 14 09/13/24 15:42 Blood Pressure 113/75 09/13/24 15:42 Pulse Oximetry 100 09/13/24 15:42 MDM - Extremity (Nontraumatic) Medical Decision Making Patient presents with right knee sprain x-ray shows no fracture we will place immobilizer weight-bear as tolerated we will get her crutches we will get her follow-up with orthopedics she is return if worsening she understands agrees plan. Medical Records I reviewed the patient's medical records. XR interpretation done by ED provider, pending radiology final review ED provider radiology interpretation(s): xr knee: no acute abnormality Discharge Plan Discharge Patient Disposition: Home Clinical Impression: Right knee sprain Qualifiers: Encounter type: initial encounter Condition: Stable Prescriptions: No Action (DME) crutch Misc See Rx Instructions miscellaneous .MEDSUPPLY Qty: 2 0RF Rx Instructions: As directed (DME) knee immobilizer See Rx Instructions .Route .MEDSUPPLY Qty: 1 0RF Rx Instructions: As directed gabapentin 300 mg capsule 300 mg PO TID aspirin [Adult Aspirin Regimen] 81 mg tablet,delayed release (DR/EC) 81 mg PO BID acetaminophen [Tylenol] 325 mg capsule 325 mg PO QID PRN hydroxyzine HCl 10 mg tablet 10 mg PO BID PRN (Reason: anxiety) Qty: 60 0RF Discharge Orders: Discharge ED (Routine); Ordered 09/13/24 Ordered By: Kaushal Huston Referrals: Flora Alvarez FNP [Primary Care Provider, Nurse Practitioner] Sara Crockett MD [Physician, Orthopedics] - 4-7 days Discharge Diet: Advance as tolerated Discharge Activity: Limit activity as instructed and Use walker/crutches as instructed Patient Instructions: Knee Sprain (ED) Print Language: German Coding Level of Care Code ED Mobile Sales Consultant for Lester Goodman
[2024-09-13] MEDS: oxyCODONE-APAP 5-325 mg Tablet 1 TAB PO (16:14)
--- NOTE | 2024-09-14 07:10 | DCPLANNER ---
messaged ortho for er f/u
== END 2024-09-13 16:39 | disposition home or self-care (01) ==
PROVIDERS: Emergency Provider Emergency Medicine; PCP Nurse Practitioner
DX: S83.91XA Sprain of unspecified site of right knee, initial encounter (principal); Z79.82 Long term (current) use of aspirin; Z87.891 Personal history of nicotine dependence; X58.XXXA Exposure to other specified factors, initial encounter
CPT/HCPCS: 73562; 99283; J9999

== ENCOUNTER → 2024-12-29 13:56 | Outpatient (BNVA) | payer MEDICAID, SELFPAY | PROVIDERS: PCP Nurse Practitioner; Visit Provider Orthopaedic Surgery | DX: M54.9 Dorsalgia, unspecified (principal); M54.50 Low back pain, unspecified | CPT/HCPCS: 72110 ==

== ENCOUNTER 2025-02-24 13:32 | Outpatient (CLI) | payer MEDICAID, SELFPAY ==
--- NOTE | 2025-02-24 13:45 | MR_ITS ---
WS: [id number] MRI LUMBAR SPINE NONCONTRAST TECHNIQUE: Sagittal T1, T2 and STIR imaging. Axial T1 and T2 imaging. CLINICAL INFORMATION: Back pain COMPARISON: CT 02/08/2025 FINDINGS: Mild lumbar curve. No acute compression. No high-grade central canal stenosis. L1-L2: Normal. L2-L3: Mild annular bulging. Mild facet arthropathy. Spinal canal and foramen are patent. L3-L4: Mild annular bulging. Mild facet arthropathy. Spinal canal and foramen are patent. L4-L5: Mild annular bulging. Slight effacement of ventral thecal sac with narrowing of the subarticular recess. Mild facet arthropathy. L5-S1: Mild annular bulging. Moderate facet arthropathy. Spinal canal and foramen are patent. Visualized pelvic bony structures: Normal. Paravertebral soft tissues: Normal. MR/MR lumbar spine wo con* [id number] IMPRESSION: 1. Mild lumbar curve. No acute compression. No high-grade central canal stenos is. 2. Mild annular bulge L4-5 with narrowing of the subarticular recess bilateral ly and mild proximal bilateral foraminal narrowing. 3. Moderate facet arthropathy L4-L5 and L5-S1.
== END 2025-02-24 13:33 | disposition home or self-care (01) ==
LOC: RAD 13:34
PROVIDERS: PCP Nurse Practitioner; Visit Provider Orthopaedic Surgery
DX: M48.061 Spinal stenosis, lumbar region without neurogenic claudication (principal); M51.369 Other intervertebral disc degeneration, lumbar region without mention of lumbar back pain or lower extremity pain; M47.896 Other spondylosis, lumbar region; M51.379 Other intervertebral disc degeneration, lumbosacral region without mention of lumbar back pain or lower extremity pain; M48.07 Spinal stenosis, lumbosacral region
CPT/HCPCS: 72148

== ENCOUNTER → 2025-03-04 16:38 | Outpatient (BNVA) | payer MEDICAID, SELFPAY | PROVIDERS: PCP Nurse Practitioner; Visit Provider Orthopaedic Surgery | DX: M48.062 Spinal stenosis, lumbar region with neurogenic claudication (principal) | CPT/HCPCS: 36415; 80053; 81001; 85025 ==

== ENCOUNTER 2025-03-31 10:07 | Day surgery (SDC) | payer MEDICAID, SELFPAY ==
[2025-03-31] VITALS (12 sets, daily range): BP systolic 105–129; BP diastolic 70–78; PULSE 69–104; RESP 15–21; TEMP 36.4–36.8; O2SAT 97–99; BMI 29.4
--- NOTE | 2025-03-31 10:17 | SC_ITS ---
WS: [id number] C-arm fluoroscopy of the lumbar spine, 03/31/2025 Clinical Data: Surgery Comparison: Lumbar spine, 12/29/2024 Findings: Dr. Chris performed a lumbar decompression. SC/C-arm Fluoroscopy [id number] Impression: Lumbar decompression.
[2025-03-31 11:17] LABS: OR HCG Qualitative Urine Negative (Negative)
--- NOTE | 2025-03-31 11:24 | P.ANESASSM_ITS ---
Pre-Anesthetic Assessment Height/Weight: Height 1.65 m Weight 80.286 kg O2 Del Method Room Air 03/31/25 10:44 Preop Diagnosis: Lumbar stenosis with neurogenic claudication Operation Date: 03/31/25 11:50 Proposed Procedures p Lumbar Spine Decompression Lumbar Decompression(Not Applicable) - Emilio Chris DO Familial anesthetic complications: none Was Beta Simone taken within 24 hours: N/A Was Clonidine taken within 24 hours: N/A Last intake: Intake Last Liquid Date 03/30/25 Last Liquid Time 23:45 Last Solid Date 03/30/25 Last Solid Time 23:45 Social No alcohol and No tobacco Exam alert, oriented x 3, clear to auscultation bilaterally and regular rate & rhythm Airway Mallampati: Class II Dentition: full Neuropsych Depression Anesthetic Plan ASA status: 2 Anesthesia: General Risk of > 500 ml blood loss (7ml/kg in children): No Medications/Allergies Home Medications ?Medication ?Instructions ?Recorded ?Confirmed ?Last Taken ?Type crutch #2 ea 05/10/23 03/22/25 Unkn own Rx knee immobilizer #1 ea 05/10/23 03/22/25 Unkn own Rx gabapentin 300 mg capsule 300 mg PO TID 10/02/2303/3003/30/25 History acetaminophen 325 mg tablet 650 mg PO QID PRN Fever Or Pain 09/13/24 03/30/25 Unknown History (Tylenol) clonazepam 0.5 mg tablet 0.5 mg PO DIRECTED PRN An xiety 09/13/24 03/30/25 03/31/25 History celecoxib 200 mg capsule (Celebrex) 200 mg PO BID 2 we eks #28 caps 02/16/25 03/30/25 03/29/25 Rx Allergies Allergy/AdvReac Type Severity Reaction Status Date / Time hydrocodone AdvReac ADR-Vomitin Verified 03/30/25 11:27 g PFSH Anesthesia Medical History Psychiatric care No pertinent past medical history Surgical History No pertinent past surgical history Family History Family/Other Cancer maternal aunt and uncle as well as both grandparents had malinoma Grandfather also had a brain tumor. Denies family history of Diabetes Heart disease Chronic kidney disease (CKD) Thyroid disease Stroke Social History Smoking and tobacco/nicotine status: current every day tobacco/nicotine user c igarettes Packs smoked per day: 0.5 Alcohol intake: never Substance/Drug Use: never Female Reproductive History Para: 1 Spontaneous abortions: Yes
[2025-03-31] MEDS: ceFAZolin 2,000 mg SDV 2000 MG IVP (11:37)
--- NOTE | 2025-03-31 11:40 | W.PM.OPSUD ---
Surgery/Procedure H&P Update DATE OF PROCEDURE: March 31, 2025 DATE H&P PERFORMED: 03/04/25 H&P UPDATE INFORMATION: I have reviewed H&P completed within last 30 days, I have examined patient prior to procedure and No changes to prior documentation PREOP DIAGNOSIS: Lumbar stenosis with neurogenic claudication PLANNED PROCEDURE: Operation Date: 03/31/25 11:50 Proposed Procedures p Lumbar Spine Decompression Lumbar Decompression(Not Applicable) - Emilio Chris DO
[2025-03-31] MEDS: lidocaine-epi 1% 20 mL INJ 10 ML INJECTION (12:55)
--- NOTE | 2025-03-31 12:59 | P.OP_ITS ---
Operative Report Date of procedure: March 31, 2025 Pre-op diagnosis: Lumbar stenosis with neurogenic claudication Post-op diagnosis: Same Procedure done: L4/5 laminectomy with partial facetectomy Surgeon: Emilio Chris DO Estimated blood loss (mL): 5 Procedure: L4/5 laminectomy with partial facetectomy Patient is brought to the operative suite. After undergoing anesthesia they are placed in the prone position. All areas of impingement are well padded. Patient is then prepped and draped in the normal sterile fashion. A skin incision is made over the L4/5 level. This is confirmed under c-arm guidance. A series of dilators are passed and the tubular retractor is docked on the L4 lamina. A bovie is used to clear the soft tissue off the lamina and the L 4/5 facet joint. A high speed kwame is then used to perform the laminectomy and take down the medial aspect of the L 4/5 facet joint. A kerrison rongeure was then used to take down the remaining lamina and smooth the edge of the laminectomy up to the point where the ligamentum flavum attaches. Attention was then brought to the medial aspect of the facet joint. The remaining medial aspect of the superior and inferior aspect of the facet joint were taken down with the kerrison from the pedicle of L4 to L 5. The facet joint had significant hypertrophy. Attention was then brought to the Ligamentum Flavum. The ligament was taken down from the lamina of L4 to L5 and out medially to the remaining facet joint. The ligament was thick. The dura was then exposed. The dura was in good repair. The L4 nerve was then traced with a curette out the L4/5 foramen and found to be adequately decompressed. The L5 nerve was traced with a curette around the L5 pedicle. The lateral recess was opened with a kerrison helping to further decompress the L5 nerve. Wound is then irrigated copiously with saline and surgiflo is used to stop any bleeding. The tubular retractor is removed and the wound is closed with vicryl and monocryl suture. Steri strips were applied. A sterile dressing is then pl aced. Patient was then placed in the supine position and transferred to the PACU in stable condition.
[2025-03-31] MEDS: fentaNYL 50 mcg/mL INJ 2mL IVP (13:05)
[2025-03-31] MEDS: oxyCODONE 5 mg IR Tab/Cap PO (13:51)
--- NOTE | 2025-03-31 14:15 | ANE.PACU2 ---
Inpatient post-anesthesia follow up: Airway intact: Yes Vital signs: Temperature 98.2 F Pulse Rate 71 Respiratory Rate 18 Blood Pressure 112/72 Pulse Oximetry 97 Oxygen Delivery Me thod Room Air Oxygen Flow Rate Fraction of Inspir ed Oxygen Hydration adequate: Yes Nausea and vomiting: No Pain level: 1 Mental status: Baseline
--- NOTE | 2025-03-31 15:14 | XR_ITS ---
WS: [id number] C-arm fluoroscopy of the lumbar spine, 03/31/2025 Clinical Data: Surgery Comparison: Lumbar spine, 12/29/2024 Findings: Dr. Chris performed a lumbar decompression. XR/XR lumbar spine 2-3V* [id number] Impression: Lumbar decompression.
== END 2025-03-31 14:15 | disposition home or self-care (01) ==
PROVIDERS: Anesthesiology; PCP Family Medicine; Visit Provider Orthopaedic Surgery
PROC: (CPT 63005; principal; 2025-03-31 11:50)
DX: M48.062 Spinal stenosis, lumbar region with neurogenic claudication (principal); F32.A Depression, unspecified; F17.210 Nicotine dependence, cigarettes, uncomplicated
CPT/HCPCS: 63047; 72100; 76000; 81025; A4649; J0330; J0690; J1100; J1885; J2250; J2405; J2704; J3010; J3490; J7030; J9999